=== PATIENT | female | born 1990 | race African-American/Black ===

== ENCOUNTER 2018-11-09 10:49 | Emergency (ER) | payer OTHER ==
[~2018-11-09] VITALS: Ht 160 cm; Wt 57.6 kg
[~2018-11-09 10:49] MED LIST: NKM
--- NOTE | 2018-11-09 10:56 | NUR ---
ED Nurse Note: Pt BIBA and LAFD due to having suicidal thoughts. Pt denies harming ohers. Pt denies having a plan. Pt started to have thoughts since this morning and had no precipitating factors. A + O x4. LAFD at the bedside. Pt's belongings stored in storage.
[2018-11-09 10:57] VITALS: BP 115/87
--- NOTE | 2018-11-09 11:01 | NUR ---
ED Nurse Note: Belongings are in Locker #2
--- NOTE | 2018-11-09 11:01 | NUR ---
ED Nurse Note: According to LAFD, pt will be placed in a 5150 hold.
[2018-11-09 12:04] VITALS: BP 105/79
--- NOTE | 2018-11-09 12:06 | Emergency Room Report ---
History of Present Illness General Chief Complaint: Behavioral Complaint Source: EMS (Phu Aviles) Present Illness HPI 28-year-old female patient presents the ER brought in by ambulance on 5150 hold. EMS reports that patient was at the daycare earlier and brought in for complaints of SI. Patient reports history of schizophrenia and bipolar disease. Reports he takes Latuda and other medications, does not remember the names of medications. Patient complaining of facial pain at this time. Reports ringing in her ears during this time. Denies vertigo, syncope, dizziness. Denies vision changes. Reports pain has been present for "a while" . Reports history of similar symptoms in the past. Denies fever, chest pain, shortness of breath. (Phu Aviles) Allergies: Coded Allergies: No Known Allergies (Unverified , 05/14/16) Patient History Past Medical History: see triage record Last Menstrual Period: 10/2018 Now: No Reviewed Nursing Documentation: PMH: Agreed; PSxH: Agreed (Phu Aviles) Nursing Documentation-PMH Past Medical History: No History, Except For History Of Psychiatric Problem: Yes (Phu Aviles) Review of Systems All Other Systems: negative except mentioned in HPI (Phu Aviles) Physical Exam Vital Signs Date Time Temp Pulse Resp B/P (MAP) Pulse Ox O2 Delivery O2 Flow Rate FiO2 11/09/18 10:43 98.6 87 16 118/80 100 Room Air 11/09/18 10:57 98 Sp02 EP Interpretation: reviewed, normal General Appearance: well appearing, no apparent distress, alert, GCS 15, non- toxic Head: normocephalic, atraumatic Eyes: bilateral eye normal inspection, bilateral eye PERRL ENT: hearing grossly normal, normal pharynx, no angioedema, normal voice, TMs + canals normal, uvula midline, moist mucus membranes Neck: full range of motion, no meningismus, no bony tend Respiratory: lungs clear, normal breath sounds, no rhonchi, no respiratory distress, no accessory muscle use, no wheezing, speaking full sentences Cardiovascular #1: regular rate, rhythm, no edema Gastrointestinal: non tender, soft, no mass, non-distended, no guarding, no rebound Genitourinary: no CVA tenderness Musculoskeletal: back normal, digits/nails normal, gait/station normal, normal range of motion, non-tender Neurologic: alert, oriented x3, responsive, motor strength/tone normal, sensory intact Psychiatric: mood/affect normal Skin: no rash Lymphatic: no adenopathy (Phu Aviles) Medical Decision Making PA Attestation Dr. Mcclendon is my supervising Physician whom patient management has been discussed with. (Phu Aviles) Diagnostic Impression: Primary Impression: Behavioral disorder Additional Impressions: Suicidal ideation Medical clearance for psychiatric admission ER Course Pt. presents to the ED c/o facial pain, brought in by ambulance for behavioral complaint on 5150 hold. Ddx considered but are not limited to anxiety, depression, drug use, alcohol use , behavioral disorder, trigeminal neuralgia, sinusitis, ICH. Vital signs: are WNL, pt. is afebrile Ordered labs, urine drug screen, serum alcohol. ER COURSE: Ordered sitter. CBC and CMP unremarkable, no elevation WBC or LFTs. Urine drug screen negative, UA shows no signs of infection [place] salicylate levels not elevated CT head negative. Provide patient with Ativan and [place] while in the ER for pain. Patient reports allergy to Haldol and Benadryl. Patient resting comfortably no acute distress, nontoxic-appearing. Patient will be evaluated by Dr. Martinez in the a.m. Patient signed out to Dr. Moore. - Please note that this Emergency Department Report was dictated using [employer] installer technology software, occasionally this can lead to erroneous entry secondary to interpretation by the dictation equipment. [facility] Test 11/09/18 11:37 11/09/18 12:08 Urine Color Pale yellow Urine Appearance Slightly cloudy Urine pH 6.5 (4.5-8.0) Urine Specific [employer] 1.015 (1.005-1.035) Urine Protein 1+ (NEGATIVE) Urine Glucose (UA) Negative (NEGATIVE) Urine Ketones Negative (NEGATIVE) Urine Blood 1+ (NEGATIVE) Urine Nitrite Negative (NEGATIVE) Urine Bilirubin Negative (NEGATIVE) Urine Urobilinogen Normal MG/DL (0.0-1.0) Urine Leukocyte Esterase 1+ (NEGATIVE) Urine RBC 2-4 /HPF (0 - 2) Urine WBC 2-4 /HPF (0 - 2) Urine Squamous Epithelial Cells Few /LPF (NONE/OCC) Urine Bacteria Few /HPF (NONE) Urine HCG, Qualitative Negative (NEGATIVE) Urine Opiates Screen Negative (NEGATIVE) Urine Barbiturates Screen Negative (NEGATIVE) Phencyclidine (PCP) Screen Negative (NEGATIVE) Urine Amphetamines Screen Negative (NEGATIVE) Urine Benzodiazepines Screen Negative (NEGATIVE) Urine Cocaine Screen Negative (NEGATIVE) Urine Marijuana (THC) Screen Negative (NEGATIVE) White Blood Count 7.0 K/UL (4.8-10.8) Red Blood Count 5.33 M/UL (4.20-5.40) Hemoglobin 14.9 G/DL (12.0-16.0) Hematocrit 44.0 % (37.0-47.0) Mean Corpuscular Volume 83 FL (80-99) Mean Corpuscular Hemoglobin 28.0 PG (27.0-31.0) Mean Corpuscular Hemoglobin Concent 33.8 G/DL (32.0-36.0) Red Cell Distribution Width 11.6 % (11.6-14.8) Platelet Count 243 K/UL (150-450) Mean Platelet Volume 6.9 FL (6.5-10.1) Neutrophils (%) (Auto) 48.8 % (45.0-75.0) Lymphocytes (%) (Auto) 39.0 % (20.0-45.0) Monocytes (%) (Auto) 6.8 % (1.0-10.0) Eosinophils (%) (Auto) 3.7 % (0.0-3.0) Basophils (%) (Auto) 1.8 % (0.0-2.0) Sodium Level 137 MMOL/L (136-145) Potassium Level 3.8 MMOL/L (3.5-5.1) Chloride Level 103 MMOL/L (98-107) Carbon Dioxide Level 26 MMOL/L (21-32) Anion Gap 9 mmol/L (5-15) Blood Urea Nitrogen 8 mg/dL (7-18) Creatinine 1.0 MG/DL (0.55-1.30) Estimat Glomerular Filtration Rate > 60 mL/min (>60) Glucose Level 83 MG/DL (74-106) Calcium Level 9.9 MG/DL (8.5-10.1) Total Bilirubin 0.4 MG/DL (0.2-1.0) Aspartate Amino Transf (AST/SGOT) 21 U/L (15-37) Alanine Aminotransferase (ALT/SGPT) 17 U/L (12-78) Alkaline Phosphatase 92 U/L (46-116) Total Protein 8.4 G/DL (6.4-8.2) Albumin 4.4 G/DL (3.4-5.0) Globulin 4.0 g/dL Albumin/Globulin Ratio 1.1 (1.0-2.7) Salicylates Level 0.4 ug/mL (2.8-20) Acetaminophen Level < 2 MCG/ML (10-30) Serum Alcohol < 3 mg/dL (Phu Aviles P.AJasiel) ER Course Patient considered medically stable (Thalia Roper DO) CT/MRI/US Diagnostic Results CT/MRI/US Diagnostic Results : Imaging Test Ordered: CT head Impression negative (Phu Aviles) Last Vital Signs Date Time Temp Pulse Resp B/P (MAP) Pulse Ox O2 Delivery O2 Flow Rate FiO2 11/09/18 10:57 88 17 Room Air 98 11/09/18 10:57 98.6 115/87 100 (Phu Aviles P.AJasiel) Phu Aviles Nov 09, 2018 12:06 Thalia Roper DO Nov 10, 2018 12:04
--- NOTE | 2018-11-09 12:13 | NUR ---
ED Nurse Note: Pt stated " I am allergic to Haldol, Benadryl, can I take [place] for my pain?", refused all medications orders.
[2018-11-09] MEDS ORDERED: LORazepam Inj 2mg/ml 1ml IM ONE (12:15)
[2018-11-09] MEDS ORDERED: Norco 5mg/325mg tab ORAL ONE (12:15)
[2018-11-09] MEDS ORDERED: Haloperidol 5mg/ml Inj IM ONE (12:15)
[2018-11-09 12:22] LABS: BASOPHILS % (AUTO) 1.8 % (0.0-2.0); EOSINOPHILS % (AUTO) 3.7 % (0.0-3.0); HEMOGLOBIN 14.9 G/DL (12.0-16.0); MEAN CORPUSCULAR VOLUME 83 FL (80-99); MONOCYTES % (AUTO) 6.8 % (1.0-10.0); NEUTROPHILS % (AUTO) 48.8 % (45.0-75.0); PLATELET COUNT 243 K/UL (150-450); RED BLOOD COUNT 5.33 M/UL (4.20-5.40); RED CELL DISTRIBUTION WIDTH 11.6 % (11.6-14.8)
[2018-11-09 12:23] LABS: BILIRUBIN, URINE NEGATIVE (NEGATIVE); COLOR,URINE PALE YELLOW; GLUCOSE, URINE (UA) NEGATIVE (NEGATIVE); KETONES,URINE NEGATIVE (NEGATIVE); LEUKOCYTE ESTERASE ,URINE 1+ (NEGATIVE); NITRITE,URINE NEGATIVE (NEGATIVE); PH,URINE 6.5 (4.5-8.0); PROTEIN,URINE 1+ (NEGATIVE); UROBILINOGEN,URINE NORMAL MG/DL (0.0-1.0)
--- NOTE | 2018-11-09 12:24 | NUR ---
ED Nurse Note: Pt went down to CT.
[2018-11-09 12:25] LABS: APPEARANCE,URINE SLIGHTLY CLOUDY
[2018-11-09 12:32] LABS: ANION GAP 9 mmol/L (5-15); BLOOD UREA NITROGEN 8 mg/dL (7-18); CALCIUM 9.9 MG/DL (8.5-10.1); CARBON DIOXIDE 26 MMOL/L (21-32); CHLORIDE 103 MMOL/L (98-107); POTASSIUM 3.8 MMOL/L (3.5-5.1); SODIUM 137 MMOL/L (136-145)
--- NOTE | 2018-11-09 12:33 | NUR ---
ED Nurse Note: Pt came back from CT..
[2018-11-09 12:36] LABS: ALANINE AMINOTRANSFERASE 17 U/L (12-78); ALBUMIN 4.4 G/DL (3.4-5.0); ALBUMIN/GLOBULIN RATIO 1.1 (1.0-2.7); ALKALINE PHOSPHATASE 92 U/L (46-116); ASPARTATE AMINO TRANSFERASE 21 U/L (15-37); BILIRUBIN,TOTAL 0.4 MG/DL (0.2-1.0)
--- NOTE | 2018-11-09 12:49 | Diagnostic Imaging Report ---
Indications: Altered mental status and severe head pain Technique: Spiral acquisitions obtained through the brain. Angled axial and coronal 5 x 5 mm slices were reconstructed. Total dose length product 1404.24 mGycm. CTDI vol(s) 70.38 mGy. Dose reduction achieved using automated exposure control Comparison: None. Findings: No acute intercranial hemorrhage nor edema. No mass effect nor midline shift. Normal chowdhury-white differentiation. Normal-sized ventricles and extra axial CSF spaces. Mastoids are clear. The visualized orbits and sinuses are unremarkable. The calvarium is intact Impression: Negative The CT scanner at [facility] is accredited by the [employer] and the scans are performed using protocols designed to limit radiation exposure to as low as reasonably achievable to attain images of sufficient resolution adequate for diagnostic evaluation.
[2018-11-09 14:54] VITALS: BP 110/72
[2018-11-09 16:17] VITALS: BP 107/79
[2018-11-09 18:38] VITALS: BP 111/69
--- NOTE | 2018-11-09 19:26 | NUR ---
ED Nurse Note: Received Pt and report from day shift. Knowing Pt is on hold now, sitter is on bedside. VSS.
[2018-11-09 23:00] VITALS: BP 130/77
[2018-11-09] MEDS ORDERED: Acetaminophen 500mg (ES) tab ORAL ONE (23:00)
--- NOTE | 2018-11-09 23:00 | NUR ---
ED Nurse Note: Provide snack food and drink, Pt VSS.
[2018-11-10 02:00] VITALS: BP 116/66
--- NOTE | 2018-11-10 02:00 | NUR ---
ED Nurse Note: Pt asleep when visited, VSS.
[2018-11-10 04:00] VITALS: BP 119/78
--- NOTE | 2018-11-10 04:00 | NUR ---
ED Nurse Note: Provide drink for Pt.
--- NOTE | 2018-11-10 06:25 | NUR ---
HAND-OFF: Report received from Rubi curtis.
--- NOTE | 2018-11-10 06:26 | NUR ---
ED Nurse Note: PAtient awake, alert and oriented x4, sitter at bedside.
--- NOTE | 2018-11-10 07:22 | NUR ---
ED Nurse Note: patient is a/o x4, sitter at bedside
--- NOTE | 2018-11-10 07:23 | NUR ---
ED Nurse Note: provided patient breakfast.
--- NOTE | 2018-11-10 09:20 | NUR ---
ED Nurse Note: snacks/juice provided, patietn in bed, sitter in bed
--- NOTE | 2018-11-10 10:18 | NUR ---
ED Nurse Note: Dr. Bess made aware of patient having a headache, nno
[2018-11-10] MEDS ORDERED: Ketorolac 30mg Inj IV ONE (10:45)
--- NOTE | 2018-11-10 10:53 | NUR ---
ED Nurse Note: patient refuses to have IV line placed MD made aware
[2018-11-10] MEDS ORDERED: Norco 5mg/325mg tab ORAL ONE ×2 (11:00→14:45)
--- NOTE | 2018-11-10 14:00 | NUR ---
ED Nurse Note: received report from CARROLL TONEY, pt on hold 5150 for dts, denies SI/HI/VH/AH at this time, ambulatory w/ steady gait, vss, resp even and unlabored, airway intact, sitter at the bedside will cont monitor. pt reports pain, ERMD notified.
[2018-11-10 14:30] VITALS: BP 118/78
[2018-11-10] MEDS ORDERED: LORazepam 1mg tab ORAL ONE (14:45)
--- NOTE | 2018-11-10 15:48 | NUR ---
ED Nurse Note: PT reports pain is better with norco, will cont monitor.
--- NOTE | 2018-11-10 16:00 | NUR ---
ED Nurse Note: pt given sandwich and water.
[2018-11-10 16:30] VITALS: BP 108/56
[2018-11-10 16:43] VITALS: BP 99/76
--- NOTE | 2018-11-10 16:43 | NUR ---
ED Nurse Note: gave report to mariah RN at [facility] and [facility], pt transferred to [facility] and endorsed care to [facility] personnel, pt belongings sent to w/ [facility].
== END 2018-11-10 16:43 ==
LOC: EDBD 10:49 → EMR 11:21
DX: F91.9 Conduct disorder, unspecified (principal); R45.851 Suicidal ideations; R41.82 Altered mental status, unspecified
CPT/HCPCS: 36415; 70450; 80053; 80307; 80329; 81003; 81025; 85025; 99285